=== PATIENT | female | born 1945 | race Caucasian/White ===

== ENCOUNTER 2016-12-25 22:54 | Emergency (ER) | payer OTHER ==
[2016-12-25 23:07] VITALS: BMI 21.8
[2016-12-25] MEDS ORDERED: SODIUM CHLORIDE 0.9% 500 ML INFUS.BAG IV ONE (23:46)
[2016-12-25] MEDS ORDERED: ACETAMINOPHEN 325 MG TABLET (FP) PO ONE (23:48)
--- NOTE | 2016-12-25 23:48 | PDOC ---
[id number] No Limitations - History of Present Illness Initial Comments: 12/25/16 23:51 The patient is 71 year old female with a significant past medical history of hypertension and glaucoma who presents to the ED with complaint of sore throat, difficulty swallowing, body aches and cough for 2-3 days. She states that she has difficulty swallowing due to the sore throat. She notes that she took NyQuil last night to alleviate her symptoms.Patient notes that she is feeling cold. She also reports neck pain that radiates to the left shoulder. She reports decreased PO. SH: Former smoker PSH - Appendectomy, tonsillectomy <Radha Penn - Last Filed: 12/25/16 23:51> <Katie Elmore - Last Filed: 12/31/16 00:40> - General Chief Complaint: Sore Throat Stated Complaint: COLD Time Seen by Provider: 12/25/16 23:20 Past History <Radha Penn - Last Filed: 12/25/16 23:51> - Past Medical History HTN: Yes Hypercholesterolemia: Yes Other medical history: osteoporosis - Surgical History Appendectomy: Yes - Psycho/Social/Smoking Cessation Hx Anxiety: No Suicidal Ideation: No Smoking Status: No Smoking History: Former smoker Have you smoked in the past 12 months: No Number of Cigarettes Smoked Daily: 0 Information on smoking cessation initiated: No Hx Alcohol Use: No Drug/Substance Use Hx: No Substance Use Type: None <Katie Elmore - Last Filed: 12/31/16 00:40> - Past Medical History Allergies/Adverse Reactions: Allergies Allergy/AdvReac Type Severity Reaction Status Date / Time No Known Allergies Allergy Verified 12/25/16 23:02 Home Medications: Ambulatory Orders Alendronate Na [Fosamax (NF)] 70 mg PO DAILY 06/30/12 Aspirin [ASA -] 81 mg PO DAILY 06/30/12 Calcium 500Mg/Vit-D 200 Units [Os-Leonel 500+D -] 500 mg PO DAILY 06/30/12 Losartan Potassium 50 mg PO DAILY 06/30/12 Pravastatin Sodium [Pravachol -] 20 mg PO HS 07/19/16 Review of Systems - Review of Systems Able to Perform ROS?: Yes Comments:: 12/25/16 23:51 GENERAL/CONSTITUTIONAL:+fever, +chills, +weakness. HEAD, EYES, EARS, NOSE AND THROAT: +sore throat, +difficulty swallowing. No change in vision. No ear pain or discharge. CARDIOVASCULAR: No chest pain or shortness of breath. RESPIRATORY: +cough No wheezing, or hemoptysis. GASTROINTESTINAL: No nausea, vomiting, diarrhea or constipation. GENITOURINARY: No dysuria, frequency, or change in urination. MUSCULOSKELETAL: +neck pain. No joint or muscle swelling or pain. No back pain. SKIN: No rash NEUROLOGIC: No headache, vertigo, loss of consciousness, or change in strength/ sensation. ENDOCRINE: No increased thirst. No abnormal weight change. HEMATOLOGIC/LYMPHATIC: No anemia, easy bleeding, or history of blood clots. ALLERGIC/IMMUNOLOGIC: No hives or skin allergy. <Radha Penn - Last Filed: 12/25/16 23:51> *Physical Exam - Vital Signs Last Vital Signs Temp Pulse Resp BP Pulse Ox 99.9 F H 97 H 18 148/82 97 12/25/16 23:02 12/25/16 23:02 12/25/16 23:02 12/25/16 23:02 12/25/16 23:02 - Physical Exam Comments: 12/25/16 23:53 GENERAL: Awake, alert, and fully oriented, in no acute distress HEAD: No signs of trauma EYES: PERRLA, EOMI, sclera anicteric, conjunctiva clear ENT: Auricles normal inspection, hearing grossly normal, nares patent, oropharynx clear without exudates. Moist mucosa NECK: Normal ROM, supple, no lymphadenopathy, JVD, or masses LUNGS: Breath sounds equal, clear to auscultation bilaterally. No wheezes, and no crackles HEART: Regular rate and rhythm, normal S1 and S2, no murmurs, rubs or gallops ABDOMEN: Soft, nontender, normoactive bowel sounds. No guarding, no rebound. No masses EXTREMITIES: Normal range of motion, no edema. No clubbing or cyanosis. No cords, erythema, or tenderness NEUROLOGICAL: Cranial nerves II through XII grossly intact. Normal speech, normal gait SKIN: Warm, Dry, normal turgor, no rashes or lesions noted. <Radha Penn - Last Filed: 12/25/16 23:51> - Vital Signs Last Vital Signs Temp Pulse Resp BP Pulse Ox 99.9 F H 97 H 18 148/82 97 12/25/16 23:02 12/25/16 23:02 12/25/16 23:02 12/25/16 23:02 12/25/16 23:02 <Katie Elmore - Last Filed: 12/31/16 00:40> ED Treatment Course - LABORATORY CBC & Chemistry Diagram: 12/26/16 00:21 12/26/16 00:21 <Katie Elmore - Last Filed: 12/31/16 00:40> Medical Decision Making - Medical Decision Making 12/31/16 00:39 Pt comes with sore throat and body aches. Labs normal, strep test normal and flu culture negative. Pt has a viral illness/pharyngitis. Stable for discharge home. Analgesics to go home with. <Katie Elmore - Last Filed: 12/31/16 00:40> *DC/Admit/Observation/Transfer - Attestations Scribe Attestion: 12/25/16 23:53 Documentation prepared by GLADYS Gomes, acting as medical billing clerk for Katie Elmore MD. <Radha Penn - Last Filed: 12/25/16 23:51> - Discharge Dispostion Admit: No <Katie Elmore - Last Filed: 12/31/16 00:40> Diagnosis at time of Disposition: Viral syndrome - Discharge Dispostion Disposition: HOME Condition at time of disposition: Improved - Referrals Referrals: Bárbara Miguel [Primary Care Provider] - - Patient Instructions Printed Discharge Instructions: DI for Viral Syndrome Print Language: EQUATORIAL GUINEAN
[2016-12-26] MEDS ORDERED: ACETAMINOPHEN 325 MG TABLET (FP) ONE (00:13)
[2016-12-26 00:40] LABS: BASOPHIL 0.3 % (0-2.0); EOSINOPHIL 0.7 % (0-4.5); MCH 28.8 pg (25.7-33.7); MEAN CELL VOLUME 87.3 fl (80-96); MEAN PLT VOLUME 8.7 fl (7.5-11.1); NEUTROPHILS 74.6 % (42.8-82.8); PLATELET COUNT 240 K/MM3 (134-434); RDW 13.7 % (11.6-15.6); WHITE BLOOD COUNT 7.1 K/mm3 (4.0-10.0)
[2016-12-26 01:08] LABS: ALBUMIN 3.7 g/dl (3.4-5.0); ANION GAP 10 (8-16); BILIRUBIN,TOTAL 0.5 mg/dL (0.2-1.0); CALCIUM 10.5 mg/dL (8.5-10.1); CO2 32 mmol/L (21-32); CREATININE 0.9 mg/dL (0.55-1.02); GLUCOSE,RANDOM 105 mg/dL (74-106); SGOT/AST 14 U/L (15-37); SGPT/ALT 18 U/L (12-78); TOT PROT 7.5 g/dl (6.4-8.2)
[2016-12-26 01:09] LABS: ALK PHOS 81 U/L (45-117)
[2016-12-26 01:41] VITALS: BP 122/63; PULSE 90; TEMP 99.4
== END 2016-12-26 01:42 | disposition home or self-care (01) ==
LOC: JER 22:54
DX: B34.9 Viral infection, unspecified (principal)
CPT/HCPCS: 36415; 80053; 85025; 87070; 87430; 87804; 99282-25

== ENCOUNTER 2017-02-23 20:25 | Emergency (ER) | payer OTHER ==
[2017-02-23 20:44] VITALS: BMI 22.0
[2017-02-23] MEDS ORDERED: ACETAMINOPHEN WITH CODEINE 300MG/30MG TABLET PO ONE (21:45)
--- NOTE | 2017-02-23 21:45 | PDOC ---
History of Present Illness - General Chief Complaint: Pain Stated Complaint: PAIN Time Seen by Provider: 02/23/17 21:21 History Source: Patient - History of Present Illness Initial Comments: 02/23/17 21:38 71-year-old female complaining of right hip and lower back pain for 2 days that is worse with movement. Denies numbness or tingling to the lower extremity , incontinence of urine, and bowel. Patient was seen by GI status post colonoscopy yesterday and was prescribed Flagyl. Patient does not have diarrhea fever nausea vomiting or abdominal pain at this time. Patient has a past medical history of hypertension, glaucoma, high cholesterol, osteoporosis, scoliosis, inguinal hernia.Patient has been taking Tylenol at home without relief. Past History - Past Medical History Allergies/Adverse Reactions: Allergies Allergy/AdvReac Type Severity Reaction Status Date / Time No Known Allergies Allergy Verified 02/23/17 20:39 Home Medications: Ambulatory Orders Alendronate Na [Fosamax (NF)] 70 mg PO DAILY 06/30/12 Aspirin [ASA -] 81 mg PO DAILY 06/30/12 Losartan Potassium 50 mg PO DAILY 06/30/12 Pravastatin Sodium [Pravachol -] 20 mg PO HS 07/19/16 Acetaminophen W/ Codeine #3 [Tylenol # 3 -] 1 tab PO Q6H #12 tablet MDD 4 GI Disorders: Yes (Diverticulosis) HTN: Yes Hypercholesterolemia: Yes - Surgical History Appendectomy: Yes - Psycho/Social/Smoking Cessation Hx Anxiety: No Suicidal Ideation: No Smoking Status: No Smoking History: Former smoker Have you smoked in the past 12 months: No Number of Cigarettes Smoked Daily: 0 Information on smoking cessation initiated: No Hx Alcohol Use: No Drug/Substance Use Hx: No Substance Use Type: None Review of Systems - Review of Systems Able to Perform ROS?: Yes Is the patient limited Mosotho proficient: No Constitutional: No: Symptoms Reported, See HPI, Chills, Diaphoresis, Fever, Loss of Appetite, Malaise, Night Sweats, Weakness, Weight Stable, Unintentional Wgt. Loss, Unexplained wgt Loss, Other Musculoskeletal: Yes: Back Pain, Joint Pain *Physical Exam - Vital Signs Last Vital Signs Temp Pulse Resp BP Pulse Ox 98.8 F 85 20 129/74 99 02/23/17 20:39 02/23/17 20:39 02/23/17 20:39 02/23/17 20:39 02/23/17 20:39 - Physical Exam General Appearance: Yes: Appropriately Dressed Respiratory/Chest: positive: Lungs Clear, Normal Breath Sounds Cardiovascular: positive: Regular Rhythm, Regular Rate Gastrointestinal/Abdominal: positive: Normal Bowel Sounds, Soft Musculoskeletal: positive: Vertebral Tenderness (lumbar area, limited rom of right hip) Extremity: positive: Normal Capillary Refill, Normal Inspection, Normal Range of Motion Integumentary: positive: Normal Color, Dry, Warm Neurologic: positive: Fully Oriented, Alert, Normal Mood/Affect Progress Note - Progress Note Progress Note: Musculoskeletal pain P: ua pain control lumbar sacral xray hip and pelvis Medical Decision Making - Medical Decision Making 02/24/17 00:04 patient is feeling better. able to sit comfortably. will discharge patient home to have outpatient follow up. *DC/Admit/Observation/Transfer Diagnosis at time of Disposition: Musculoskeletal pain - Prescriptions Prescriptions: Acetaminophen W/ Codeine #3 [Tylenol # 3 -] 1 tab PO Q6H #12 tablet MDD 4 - Referrals Referrals: Bárbara Miguel [Primary Care Provider] - - Patient Instructions Printed Discharge Instructions: DI for Musculoskeletal Pain Additional Instructions: take tyelnol # 3 as prescribed as needed for pain Follow up with your doctor as soon as possible. return to the ER if symptoms worsen.
[2017-02-23] MEDS ORDERED: ACETAMINOPHEN WITH CODEINE 300MG/30MG TABLET ONE (21:47)
--- NOTE | 2017-02-23 22:45 | PDOC ---
*Physical Exam - Vital Signs Last Vital Signs Temp Pulse Resp BP Pulse Ox 98.8 F 85 20 129/74 99 02/23/17 20:39 02/23/17 20:39 02/23/17 20:39 02/23/17 20:39 02/23/17 20:39 ED Treatment Course - Medications Given in the ED: ED Medications Discontinued Medications Generic Name Dose Route Start Last Admin Trade Name Freq PRN Reason Stop Dose Admin Acetaminophen/Codeine Phosphate 1 tab 02/23/17 21:45 02/23/17 22:15 Tylenol # 3 - PO 02/23/17 21:46 1 tab ONCE ONE Administration Medical Decision Making - Medical Decision Making 02/23/17 22:45 agree with care from KAVON Mayen *DC/Admit/Observation/Transfer Diagnosis at time of Disposition: Musculoskeletal pain - Referrals Referrals: Bárbara Miguel [Primary Care Provider] - - Patient Instructions - Post Discharge Activity
[2017-02-23 23:08] LABS: URINE APPEARANCE CLEAR; URINE BILIRUBIN NEGATIVE (NEGATIVE); URINE COLOR LTYELLOW; URINE GLUCOSE (UA) NEGATIVE (NEGATIVE); URINE KETONE NEGATIVE (NEGATIVE); URINE NITRITE NEGATIVE (NEGATIVE); URINE PROTEIN NEGATIVE (NEGATIVE); URINE UROBILINOGEN NEGATIVE E.U./dl (0.2-1.0)
[2017-02-23 23:45] LABS: URINE BLOOD 2+ (NEGATIVE); URINE LEUK ESTERASE TRACE (NEGATIVE)
[2017-02-24 00:15] LABS: URINE MUCUS RARE; URINE RBC 5 /hpf (0-3); URINE WBC <1 /hpf (3-5)
[2017-02-24 00:43] VITALS: BP 125/70; PULSE 80; TEMP 98.2
== END 2017-02-24 00:44 | disposition home or self-care (01) ==
LOC: JER 20:25
DX: M79.1 Myalgia (principal); I10 Essential (primary) hypertension; E78.00 Pure hypercholesterolemia, unspecified; Z87.891 Personal history of nicotine dependence
CPT/HCPCS: 72100-TC; 73523-TC; 81003; 81015; 99282-25

== ENCOUNTER 2017-03-07 11:15 | Day surgery (SDC) | payer OTHER ==
[2017-03-07 14:15] VITALS: TEMP 97.6
[2017-03-07] MEDS ORDERED: PROPOFOL 20 ML ONE (14:23)
[2017-03-07] MEDS ORDERED: LIDOCAINE HCL/PF 2% SDV 5ML VIAL ONE (14:23)
[2017-03-07 15:51] VITALS: BP 127/71; PULSE 66
--- NOTE | 2017-03-09 10:45 | PATH ---
Surgical Pathology Report Patient Name: YAZMIN FOFANA [facility] Rec. #: [id number] /Age/Gender: 1945 (Age: 71) / F Account: [id number] Location: [facility] [place] Taken: 03/07/2017 Received: 03/08/2017 Reported: 03/09/2017 Physicians: Ramesh Okeefe M.D. Specimen(s) Received BX RECTAL POLYP Clinical History Family history of colon cancer Polyp, diverticulosis Final Diagnosis RECTUM, POLYP, BIOPSY: HYPERPLASTIC POLYP. Electronically Signed Vinod Girard M.D. Gross Description Received in formalin, labeled "biopsy rectal polyp" is a klein, irregular portion of soft tissue measuring 0.3 cm in greatest dimension. The specimen is submitted in toto in one cassette. /03/08/201703/08/2017
== END 2017-03-07 16:10 | disposition home or self-care (01) ==
LOC: JASU-ENDO 11:15
PROVIDERS: ATTEND Internal Medicine Gastroenterology
PROC: 0DBP8ZX Excision of Rectum, Via Natural or Artificial Opening Endoscopic, Diagnostic (ICD-10-PCS; principal; 2017-03-07 11:30)
DX: Z12.11 Encounter for screening for malignant neoplasm of colon (principal); Z80.0 Family history of malignant neoplasm of digestive organs; K57.30 Diverticulosis of large intestine without perforation or abscess without bleeding; K62.1 Rectal polyp; K64.8 Other hemorrhoids
CPT/HCPCS: 88305-TC

== ENCOUNTER 2019-02-16 09:26 | Emergency (ER) | payer OTHER | END 2019-02-16 14:02 | disposition home or self-care (01) | LOC: JER 09:26 ==